=== PATIENT | female | born 1980 ===

== ENCOUNTER 2025-04-06 17:44 | Emergency (ER) | payer OTHER ==
[~2025-04-06] VITALS: Ht 160 cm; Wt 70.5 kg
[2025-04-06 17:51] VITALS: TEMP 98.2
[2025-04-06 18:10] LABS: MEAN PLATELET VOLUME 7.6 FL (7.4-10.4); RED CELL DISTRIBUTION WIDTH 13.7 % (11.5-14.5)
--- NOTE | 2025-04-06 18:19 | ELECTROCARDIOGRAPH REPORT ---
[facility] Test Date: 2025-04-06 Test Time: 18:16:11 Pat Name: CLAUDIA VALENCIA Department: [facility]- Patient ID: [facility]-[id number] Room: Gender: F Senior Writer: : 1980 Requested By: THOMAS CRENSHAW Order Number: [id number] Reading MD: Measurements Intervals Mcgrady Rate: 63 P: 38 MS: 95 QRS: 90 QRSD: 102 T: 67 QT: 434 QTc: 445 Interpretive Statements Sinus rhythm Short MS interval Borderline right axis deviation Baseline wander in lead(s) V1,V2 Please click the below link to view image of tracing.
--- NOTE | 2025-04-06 18:23 | RADIOLOGY REPORT ---
CHEST RADIOGRAPH Indication: CP Technique: DI CHEST,SINGLE VIEW Comparison: None FINDINGS: The cardiac silhouette is unremarkable. The lungs demonstrate no pulmonary airspace consolidation. The pulmonary vasculature is unremarkable. There is no pleural effusion. There is no pneumothorax. IMPRESSION: No pulmonary airspace consolidation.
[2025-04-06 18:32] LABS: CREATININE 0.64 MG/DL (0.40-0.90); PRO BRAIN NATRIURETIC PEPTIDE 58 PG/ML (0-125); TOTAL CARBON DIOXIDE 28.5 MMOL/L (24-32); eCRCL 94 ML/MIN; eGFR > 90 ML/MIN
--- NOTE | 2025-04-06 18:46 | Physician Documentation ---
History of Present Illness ~ Chief Complaint: Palpitations Stated Complaint: NUMBNESS/TINGLING Time Seen by MD: 18:45 HPI Patient presents to the emergency room status post unusual episode prior to arrival. Patient was getting ready to leave work when she began feeling unusual feeling in her left upper extremity with associated weakness. No slurred speech or any other weakness. Symptoms persisted for a proximally 10 minutes before finally resolving. During this time patient became diaphoretic and pale. Brought in for evaluation. She denies past medical history, does not smoke and denies family history of stroke or heart attacks. Currently symptoms have completely resolved. Patient is not on blood thinners, denies taking control but does have an IUD. Medication Reconciliation Allergies: Coded Allergies: levofloxacin (Unverified Allergy, Unknown, 04/06/25) Review of Systems ROS All review of systems negative except as per HPI Physical Exam Vital Signs: Temperature: 98.2, Source: Oral, Heart Rate: 100, Respiratory Rate: 18, BP: 131/80, Pulse Oximetry: 100, Weight: 70.450 Oxygen Flow Rate: 0 Physical Exam General: Patient is awake, alert, oriented x4 in no acute distress and well appearing.~ Head: Normocephalic and atraumatic. Eyes: Conjunctival normal. EOMI. PERRL. ENT: Mucous membranes moist. Neck: Supple, trachea is midline. Chest: Clear to auscultation bilaterally without rales, rhonchi, or wheezes. There is no accessory muscle use or retractions. Cardiac: RRR without murmurs, gallops, or rubs. Neuro: Cranial nerves II-XII grossly intact. No focal neuro deficits. Patient ambulating without difficulty. Progress Results/Orders Results/Orders Orders - MARQUES WESLEY MD Ct Head (04/06/25 18:50) Completed Orders - MARQUES WESLEY MD Ct Head (04/06/25 18:50) Aspirin 325mg Tablet (Aspirin 325mg Tabl (04/06/25 19:40) Medications Received in ER Medications (Trade) Dose Ordered Sig/Mirella Route PRN Reason Start Time Stop Time Status Last Admin Dose Admin (aspirin 325mg tablet) 1 tab ONCE ONCE PO 04/06/25 19:40 04/06/25 19:48 DC 04/06/25 19:52 1 TAB Vital Signs 04/06/25 04/06/25 04/06/25 17:51 18:45 19:23 Temp 98.2 Pulse 100 64 Resp 18 14 14 B/P (MAP) 131/80 108/68 (81) Pulse Ox 100 99 O2 Flow Rate 0 Laboratory Tests Test 04/06/25 17:59 White Blood Count 6.0 Red Blood Count 4.74 Hemoglobin 14.1 Hematocrit 42.3 Mean Corpuscular Volume 89.4 Mean Corpuscular Hemoglobin 29.8 Mean Corpuscular Hemoglobin Concent 33.3 Red Cell Distribution Width 13.7 Platelet Count 178 Mean Platelet Volume 7.6 Neutrophils (%) (Auto) 64.6 Lymphocytes (%) (Auto) 27.6 Monocytes (%) (Auto) 6.1 Eosinophils (%) (Auto) 1.4 Basophils (%) (Auto) 0.3 Neutrophils # (Auto) 3.8 Lymphocytes # (Auto) 1.6 Monocytes # (Auto) 0.4 Eosinophils # (Auto) 0.1 Basophils # (Auto) 0.0 CBC Comment Sodium Level 140 Potassium Level 3.2 L Chloride Level 105 Carbon Dioxide Level 28.5 Anion Gap 7 L Blood Urea Nitrogen 13 Creatinine 0.64 Estimated GFR/1.73 m2 > 90 BUN/Creatinine Ratio 20.3 H Glucose Level 99 Calcium Level 8.2 L Troponin I High Sensitivity 4 Pro-B-Type Natriuretic Peptide 58 Albumin 3.7 Chemistry Comments EKG/XRAY/CT/US/VASC/MRI EKG : Additional Comment EKG interpreted by myself shows time of 18 16, rate 63, sinus rhythm, normal axis, no ST changes Chest X-Ray : Additional Comments Exam: CHEST,SINGLE VIEW CHEST RADIOGRAPH Indication: CP Technique: DI CHEST,SINGLE VIEW Comparison: None FINDINGS: The cardiac silhouette is unremarkable. The lungs demonstrate no pulmonary airspace consolidation. The pulmonary vasculature is unremarkable. There is no pleural effusion. There is no pneumothorax. IMPRESSION: No pulmonary airspace consolidation. Medical Decision Making Additional information obtaine: old records Findings Patient presents to the emergency room with chief complaint of left upper extremity weakness and paresthesias. Differentials include but are not limited to stroke, TIA, carpal tunnel, atypical migraine, peripheral nerve palsy therefore emergent labs and imaging indicated. CT scan reassuring as are labs. Mild hypokalemia. I do not believe that has cause of her symptoms. Consulted with the tele neurology given concern for possible TIA who recommended CT with contrast. Offered admission however patient is declining would like to leave. Patient is declining CT with contrast was concerned about risk factors associated with contrast. Risks benefits alternatives discussed. She has acknowledged said risk factors including severe disability and/or and he would still like to leave and follow up with her doctor. She demonstrates capacity. ER precautions discussed as well as the need to start aspirin daily. Differential Dx:Considerations: Include: angina / [place], atrial dysrhythmia, a trial fibrillation, atrial flutter, MAT, PACs, PSVT, sinus tachycardia, WPW, 1st degree AV block, 2nd degree AVB-type 1, 2nd degree AVB-type 2, 3rd degree AV block, PVCs, torsades de pointes, ventricular fibrillation, ventricular tachycardia, other Differential Dx:Considerations: Include anxiety/panic attack, Include digoxin toxicity, Include electrolyte disorder, Include heart failure, Include hyperthyroidism, Include hyperventilation, Include hypoxia, Include pacemaker malfunction, Include pulmonary embolus, Include renal failure, Include other Departure Disposition: 01 HOME / SELF CARE / HOMELESS Impression: Primary Impression: Left arm weakness Condition: Fair Discharge Instructions: Weakness Additional Instructions: Follow up with your doctor as soon as possible for outpatient imaging including MRI. Begin full strength aspirin daily. Return for return of symptoms. Referrals: NO PRIMARY CARE PROVIDER (PCP) Signature Scribe Signature: No scribe Attestation: The note accurately reflects work and decisions made by me.Marques Wesley MD 04/06/25 19:59 MARQUES WESLEY MD Apr 06, 2025 18:46
--- NOTE | 2025-04-06 19:32 | [facility] CONSULT REPORT ---
[facility] Procedure Note [facility] Procedure Note Consult [facility] Note # Demographics Consult Type: General Neurology Patient Location: Emergency Room First Name: Willa Last Name: Eagle Date of : 1980 Age: 45 Gender: Female Facility: [facility] Time of Initial Page (): 04/06/2025 18:55 First Contact with Site (): 04/06/2025 18:55 # HPI History: 45 yo F who was getting off work, typing last email, then noticed L hand felt weak/numb and it ascended up her arm. Her heart started racing, got dizzy, felt like she was going to pass out. HR was in 110s. BP 131/80. Arm symptoms lasted for at least 90 minutes. Last week, had blurry vision, almost passed out. # Scores Time of exam and NIHSS (): 04/06/2025 19:20 Level of Consciousness 1a: [0] = Alert; keenly responsive LOC Questions 1b: [0] = Answers both questions correctly LOC Commands 1c: [0] = Performs both tasks correctly Best Gaze 2: [0] = Normal Visual 3: [0] = No visual loss Facial Palsy 4: [0] = Normal symmetrical movements Motor Arm Left 5a: [0] = No drift Motor Arm Right 5b: [0] = No drift Motor Leg Left 6a: [0] = No drift Motor Leg Right 6b: [0] = No drift Limb Ataxia 7: [0] = Absent Sensory 8: [0] = Normal Best Language 9: [0] = No aphasia Dysarthria 10: [0] = Normal Extinction and Inattention 11: [0] = No abnormality NIHSS Total: 0 # Data Time Head CT personally read by me (): 04/06/2025 19:[address]: - no bleed - preliminarily reviewed by me, please refer to radiology read for official reading # Assessment Impression: - Other Unclear etiology. Differential includes referred symptoms from cardiac issue, cervical issue, demyelination (such as MS) or less likely TIA. Would get CTA to ensure no dissection, start ASA 81 mg. Given uncertain diagnosis and patient desire to leave, can get MRI brain/C spine with contrast in next 1-2 weeks # Plan Thrombolytic/Intervention: NOT IV Thrombolysis or IA Intervention candidate Thrombolytic Exclusion (< 3 hour window): - NIHSS = 0 Intraarterial Exclusion: no signs of LVO Imaging: (urgency: STAT): - CT Angiogram Head and CT Angiogram Neck AND call back with results if abnormal Imaging / diagnostics: (urgency: outpatient): MRI brain and C spine with contrast Medication: - aspirin 81 mg PO daily Other: - If patient has any neurological deterioration please call me back immediately - neurology referral as outpatient - I have discussed my recommendations with the referring provider # Logistics Attestation of consult completion: The patient is located at: [facility]. Facility staff participated in the visit. I performed this telemedicine visit from my offsite office utilizing interactive 2 way audio and visual telecommunication technology at the request of the onsite emergency room provider. Consent: Verbal consent was obtained from the patient and/or family for this encounter. Total time spent in telemedicine encounter: I spent 15 minutes reviewing clinical data and/or imaging, obtaining history, examining the patient, communicating with the onsite care team, and in preparation of this report. # Demographics First Name: Willa Last Name: Eagle Facility: [facility] Neuro Consult Order placed for: Yes GENE MATHEW MD Apr 06, 2025 19:32
--- NOTE | 2025-04-06 19:50 | RADIOLOGY REPORT ---
CLINICAL HISTORY: lue weakness TECHNIQUE: Helical scanning was performed of the head from the skull base to the vertex. Multiplanar reconstructions were performed. This exam was performed according to our departmental dose optimization program. Up-to-date CT equipment and radiation dose reduction techniques are utilized as appropriate. CTDI 51 DLP 915 COMPARISON: None FINDINGS: There is no evidence for acute intracranial hemorrhage, acute ischemic changes, mass, mass effect, or extra-axial fluid collection. There is no hydrocephalus or midline shift. There is no effacement of the cerebral sulci and basal subarachnoid cisterns. The cotter-white matter differentiation is well maintained. The imaged paranasal sinuses are clear. IMPRESSION: NO ACUTE INTRACRANIAL ABNORMALITY SEEN.
[2025-04-06 20:12] VITALS: BP 110/70; PULSE 64; RESP 14; O2SAT 99
== END 2025-04-06 20:18 | disposition home or self-care (01) ==
LOC: ER 17:46
DX: R53.1 Weakness (principal); Z88.1 Allergy status to other antibiotic agents
CPT/HCPCS: 36415; 70450; 71045; 80048; 83880; 84484; 85025; 93005; 99285